=== PATIENT | female | born 1960 | race Caucasian/White ===

== ENCOUNTER → 2020-02-15 | Outpatient (CLI) | payer OTHER ==
[~2020-02-15] MED LIST: ACET500; ALBU90OI6 INH; B Complex1 EAC2 PO; BUTASPCAF PO; ESCI10 PO; FLUSAL1005; IBUP400; KETO10 PO; LORA2 PO; MECL25 PO; NAPR550 PO; RXLORA1 PO; RXNAPNA550 PO; ZOLP10 PO; Zofran Odt4 MG PO
== END | disposition home or self-care (01) ==
LOC: LAB SHORT 11:14 → LAB 11:14
DX: R30.0 Dysuria (principal)
CPT/HCPCS: 87086

== ENCOUNTER 2021-07-01 11:51 | Emergency (ER) | payer OTHER ==
[~2021-07-01] VITALS: Ht 167.6 cm; Wt 90.7 kg
[2021-07-01 12:27] LABS: BASOPHILS ABSOLUTE AUTO 0.01 K/mm3 (0.00-0.23); BASOPHILS PERCENT AUTO 0 % (0-2); EOSINOPHILS PERCENT AUTO 0 % (0-6); Hematocrit 38.2 % (33.0-51.0); IMMATURE GRAN ABSOLUTE AUTO 0.01 K/mm3 (0.00-0.10); IMMATURE GRAN PERCENT AUTO 0 % (0-1); LYMPHOCYTES ABSOLUTE AUTO 1.05 K/mm3 (0.84-5.20); LYMPHOCYTES PERCENT AUTO 26 % (21-46); MONOCYTES ABSOLUTE AUTO 0.14 K/mm3 (0.16-1.47); MONOCYTES PERCENT AUTO 3 % (4-13); Mean Corpuscular HGB 30.8 pg (26.0-34.0); Mean Corpuscular Volume 91 fL (80-100); Mean Platelet Volume 9.8 fL (9.1-12.4); NEUTROPHILS ABSOLUTE AUTO 2.89 K/mm3 (1.96-9.15); NEUTROPHILS PERCENT AUTO 71 % (41-73); Platelet Count 142 K/mm3 (150-400); RDW Coefficient Variation 12.6 % (11.7-14.2); RDW Standard Deviation 41.7 fL (35.1-46.3); Red Blood Cell Count 4.22 M/mm3 (3.80-5.20)
[2021-07-01 12:46] LABS: Alanine Aminotransfer (ALT/SGP 36 U/L (12-78); Albumin, Blood 3.3 g/dL (3.4-5.0); Albumin/Globulin Ratio 0.8 (0.8-1.8); Alk Phos 64 U/L (50-136); Anion Gap 6 mmol/L (6-16); Aspartate Aminotrans (AST/SGOT 29 U/L (12-37); Bilirubin, Total 0.4 mg/dL (0.1-1.0); Blood Urea Nitrogen 9 mg/dL (8-24); CO2, Blood 24 mmol/L (21-32); Calcium, Blood 8.4 mg/dL (8.5-10.1); Chloride, Blood 104 mmol/L (98-108); Globulin, Blood 3.9 g/dL (2.2-4.0); Glomerular Filtration Rate >60 (60-); Glucose, Blood 295 mg/dL (70-99); Potassium, Blood 3.7 mmol/L (3.5-5.5); Sodium, Blood 134 mmol/L (136-145); Total Protein, Blood 7.2 g/dL (6.4-8.2)
[2021-07-01] MEDS ORDERED: OXAYDO5 M1 PO (14:27)
[2021-07-01] MEDS ORDERED: ONDA4 PO (14:27)
[2021-07-23] MEDS ORDERED: ANASTROZOLE PO (13:06)
[2021-07-23] MEDS ORDERED: QUET25 PO (13:06)
[2021-07-23] MEDS ORDERED: Acetaminophen650 M1 PO (13:06)
== END 2021-07-01 15:14 | disposition home or self-care (01) ==
LOC: ER 11:51
PROVIDERS: Physician Assistant
DX: G89.18 Other acute postprocedural pain (principal); N64.4 Mastodynia; R11.2 Nausea with vomiting, unspecified; R51.9 Headache, unspecified; Z85.3 Personal history of malignant neoplasm of breast
CPT/HCPCS: 36415; 80053; 83690; 85025; 96374; 96375; 99283-25; J2270; J2405

== ENCOUNTER 2021-07-25 07:16 | Day surgery (SDC) | payer OTHER ==
[~2021-07-25] VITALS: Ht 167.6 cm; Wt 87.4 kg
[~2021-07-25 07:16] MED LIST changes: +ANASTROZOLE PO; +Acetaminophen650 M1 PO; +ONDA4 PO; +OXAYDO5 M1 PO; +QUET25 PO
--- NOTE | 2021-07-25 08:53 | NUR ---
Ambulatory in [facility] warming gown applied. Surgical site prepped with 2% Chlorhexidine cloth wipe. History, Chart, Medications and Allergies reviewed before start of procedure.Lungs clear T/O to Auscultation. Patient confirms NPO status and agrees with scheduled surgery. Pre-Op teaching done. Pt verbalizes understanding. Patient States Post-Procedure ride home has been arranged. Patient reports completing Chlorhexadine shower X2 prior to admission to hospital.DOCTOR ORDERED AN EKG. IT WAS PERFORMED.
--- NOTE | 2021-07-25 11:58 | NUR ---
Patient up to Ambulate independently. Gait steady. Discharge instructions reviewed with patient. Patient verbalizes understanding. Copy given to patient to take home. History, Chart, Medications and Allergies reviewed before start of procedure.Patient States Post-Procedure ride home has been arranged.
--- NOTE | 2021-07-26 10:18 | NUR ---
07/26/21 1018 Gracie Hernandez VERIFICATIONS: EDIT CHART.
== END 2021-07-25 12:01 | disposition home or self-care (01) ==
LOC: ORSCMMR 07:16 → ORD 08:30 → ORSCMMR 12:01
PROVIDERS: Surgery
PROC: 05H533Z Insertion of Infusion Device into Right Subclavian Vein, Percutaneous Approach (ICD-10-PCS; principal; 2021-07-25 08:30)
PROC: B5161ZA Fluoroscopy of Right Subclavian Vein using Low Osmolar Contrast, Guidance (ICD-10-PCS; principal; 2021-07-25 08:30)
DX: C50.811 Malignant neoplasm of overlapping sites of right female breast (principal); Z79.899 Other long term (current) drug therapy
CPT/HCPCS: 71045; 77001; 93005; 93010; A9270; C1788; J0690; J1100; J1642; J1885; J2250; J2405; J2704; J3010; J7120

== ENCOUNTER 2022-02-07 06:05 | Day surgery (SDC) | payer OTHER ==
[~2022-02-07] VITALS: Ht 170.2 cm; Wt 87.8 kg
[~2022-02-07 06:05] MED LIST changes: +ALPR.25 PO; +Norco 5-325 Ta1 EACH PO
--- NOTE | 2022-02-08 03:55 | NUR ---
PT IS A&OX4, SBA TO [facility] AND IS ABLE TO MAKE NEEDS KNOWN. POST OP DAY 1 FOR MASTECTOMY, BILAT DRAINS PRODUCING SMALL AMOUNTS OF SEROSANG DRAINAGE. PAIN IS CONTROLLED WITH PRN [id number] 10MG Q4H. CHEST IS WRAPPED, DRESSING CDI. PT SLEEPS MOST OF THE NIGHT, IS VSS AND CALLS APPROPRIATELY. WILL CONTINUE TO MONITOR THIS PATIENT.
--- NOTE | 2022-02-08 15:14 | NUR ---
SHIFT SUMMARY: POD 1 MASTECTOMY PATIENT IS ALERT AND ORIENTED X4. VS ARE WNL AND IS ON RA. PAIN IS MANAGED WITH 2 OXY PO. SHE HAS BILATERAL PAUL DRAINS ON HER CHEST THAT ARE C/D/I. OUTPUT IN PAUL BULBS IS SMALL AMOUNT THAT IS RED COLORED. BULBS WERE JUST EMPTIED AND COMPRESSED. PATIENT IS A SBA WITH FWW AND GAIT BELT TO THE BATHROOM. SHE IS TOLERATING PO INTAKE AND IS VOIDING. PATIENT IS LAYING IN BED. CALL LIGHT WITHIN REACH. THE PLAN IS TO BE DISCHARGED HOME TOMORROW IF APPROPRIATE.
--- NOTE | 2022-02-09 03:43 | NUR ---
SHIFT SUMMARY A/O X4. POD2 BILATERAL MASTECTOMY, PAUL DRAINS BILATERALLY DRAINING A MODERATE AMOUNT OF RED DRAINAGE. STAND BY ASSIST TO THE BATHROOM. PAIN BEING MANAGED WELL WITH PO PAIN MEDICATIONS. VITAL SIGNS STABLE. VOIDING WELL. TOLERATING PO INTAKE. WILL CONTINUE TO MONITOR AND REPORT TO ONCOMING RN.
[2022-02-09] MEDS ORDERED: ONDA4 PO (11:51)
[2022-02-09] MEDS ORDERED: ROXICODONE5 MG PO (11:54)
[2022-02-09] MEDS ORDERED: Percocet 10-321 EACH PO (11:59)
--- NOTE | 2022-02-09 12:48 | NUR ---
PT DISCHARGED TO HOME; DC PACKET INSTRUCTION GIVEN AND HARD SCRIPT. PT EDUCATED ABOUT THE DRAIN AND MASTECTOMY CARE AND LIFTING RESTRICTION PER . PT BELONGINGS WITH PT, AND IV DC'D. PT GIVEN INSTRUCTION ABOUT FOLLOW UP APPOINTMENT TO DR CHINCHILLA AND FU TO PCP NEEDED. PT VERBALIZED UNDERSTANDING. PT TRANSPORTED VIA .
== END 2022-02-09 12:24 | disposition home or self-care (01) ==
LOC: ORSCMMR 06:05 → ORD 08:30 → SURS 12:21 → ORSCMMR 02-09 12:24
PROVIDERS: Surgery
PROC: 0HBV0ZZ Excision of Bilateral Breast, Open Approach (ICD-10-PCS; principal; 2022-02-07 08:30)
PROC: 0JPT0WZ Removal of Totally Implantable Vascular Access Device from Trunk Subcutaneous Tissue and Fascia, Open Approach (ICD-10-PCS; principal; 2022-02-07 08:30)
DX: C50.411 Malignant neoplasm of upper-outer quadrant of right female breast (principal); Z85.3 Personal history of malignant neoplasm of breast; D24.2 Benign neoplasm of left breast; Z79.899 Other long term (current) drug therapy
CPT/HCPCS: 88307; A9270; J0690; J1100; J1885; J2250; J2405; J2550; J2704; J3010; J7120

== ENCOUNTER 2024-06-15 06:46 | Day surgery (SDC) | payer OTHER ==
[~2024-06-15] VITALS: Ht 167.6 cm; Wt 63.8 kg
[~2024-06-15 06:46] MED LIST changes: +Percocet 10-321 EACH PO; +ROXICODONE5 MG PO
[2024-06-15] MEDS ORDERED: OZEMPIC0.25 MG/02 (07:05)
[2024-06-15] MEDS ORDERED: ESCI5 (07:05)
[2024-06-15] MEDS ORDERED: AMIT25 (07:05)
[2024-06-15] MEDS ORDERED: propofoL 40 ML IV ONE (07:19)
[2024-06-15] MEDS ORDERED: Lactated Ringer's 1,000 ML IV ONE ×2 (07:19→07:44)
[2024-06-15 08:41] VITALS: BP 123/73
== END 2024-06-15 08:46 | disposition home or self-care (01) ==
LOC: ORSCSDS 06:46
PROVIDERS: Surgery
PROC: 0DBK8ZX Excision of Ascending Colon, Via Natural or Artificial Opening Endoscopic, Diagnostic (ICD-10-PCS; principal; 2024-06-15 08:00)
DX: Z12.11 Encounter for screening for malignant neoplasm of colon (principal); D12.2 Benign neoplasm of ascending colon; K57.30 Diverticulosis of large intestine without perforation or abscess without bleeding
CPT/HCPCS: 88305; J2704; J7120